=== PATIENT | female | born 2005 | race Two or more races ===

== ENCOUNTER 2025-08-16 09:13 | Emergency (ER) | payer MEDICAID, OTHER ==
[~2025-08-16] VITALS: Ht 154.9 cm; Wt 103.9 kg
[2025-08-16] MEDS ORDERED: PSEUDOEPHEDRINE HCL 30 MG TAB PO ONE (09:45)
[2025-08-16] MEDS: ACETAMINOPHEN 325 MG TAB PO ONE (10:03)
[2025-08-16] MEDS: IBUPROFEN 400 MG TAB PO ONE (10:06)
--- NOTE | 2025-08-16 10:06 | ED.PDOC ---
GI ASSESSMENT HPI Comments Dana Delacruz is a 20-year-old female with no relevant past medical history. The patient came to the ED with a chief complaint of 4 flu-like symptoms; fever, chills, runny nose, wet cough. 2 days ago she stat experiencing odynophagia and aphonia. The patient took Tylenol and Benadryl with partial relief. The patient reported she is about 20 weeks , patient does not recall exact last menstrual period. The patient has not established pre-guillermo care. The patient denies shortness of breath, nausea, vomit, sick contact, vaginal bleeding, vaginal discharge, recent travels or other symptoms. Chief Complaint: Flu like Time Seen by MD: 09:18 Reviewed Notes: Nurses Notes, Medications, Allergies Allergies: Coded Allergies: NO KNOWN ALLERGIES (Unverified , 08/16/25) Information Source: Patient Mode of Arrival: Ambulatory Timing: Days Duration: Since onset Past Medical History PAST MEDICAL HISTORY: Denies Surgical History (Other): Right ovary cyst removal in 2022 COMBO WELDER History: Denies all COMBO WELDER Hx Family History Family History: Reviewed,noncontributory to illness Social History Smoker: Non-Smoker Alcohol: Denies ETOH Use Drugs: Denies Drug Use Lives In: Home Constitutional: reports: chills, fever, malaise, others (Myalgias ) EENTM: reports: nose congestion, throat pain, throat swelling, voice changes (Aphonia) Respiratory: reports: cough (Wet cough with yellowish phlegm); denies: hemoptysis, orthopnea, SOB at rest, shortness of breath, SOB with excertion, stridor, wheezing, others Cardiovascular: denies: chest pain, dizzy spells, diaphoresis, Dyspnea on exertion, edema, irregular heart beat, left arm pain, lightheadedness, palpitations, PND, syncope, others Gastrointestinal: denies: abdomen distended, abdominal pain, blood streaked bowels, constipated, diarrhea, dysphagia, difficulty swallowing, hematemesis, melena, nausea, poor appetite, poor fluid intake, rectal bleeding, rectal pain, vomiting, others Genitourinary: denies: abnormal vagina bleeding, burning, dyspareunia, dysuria, flank pain, frequency, hematuria, incontinence, pain, , vagina discharge, urgency, others Neurological: denies: dizziness, fainting, headache, left sided numbness, left sided weakness, numbness, paresthesia, pre-existing deficit, right sided num bness, right sided weakness, seizure, speech problems, tingling, tremors, weakness, others Musculoskeletal: denies: back pain, gout, joint pain, joint swelling, muscle pain, muscle stiffness, neck pain, others Integumetry: denies: bruises, change in color, change in hair/nails, dryness, laceration, lesions, lumps, rash, wounds, others Hematologic/Lymphatic: denies: anemia, blood clots, easy bleeding, easy bruising, swollen glands, others Endocrine: denies: excessive hunger, excessive sweating, excessive thirst, excessive urination, flushing, intolerance to cold, intolerance to heat, unexplained weight gain, unexplained weight loss, others Psychiatric: denies: anxiety, bipolar disorder, depression, hopeless, panic disorder, schizophrenia, sleepless, suicidal, others Physical Exam Exam Comments Centor criteria is 1 General Appearance: No Apparent Distress HEENT: Pharyngeal Erythema Neck: Full Range of Motion, Non-Tender, Normal, Normal Inspection Respiratory: Chest Non-Tender, Lungs Clear, No Accessory Muscle Use, No Respiratory Distress, Normal Breath Sounds Cardiovascular: No Edema, No JVD, No Murmur, No Gallop, Normal Peripheral Pulses, Regular Rate/Rhythm Breast Exam: Deferred Gastrointestinal: No Organomegaly, Non Tender, No Pulsatile Mass, Normal Bowel Sounds, Soft Genitalia: Deferred Pelvic: Deferred Rectal: Deferred Extremities: No calf tenderness, Normal capillary refill, Normal inspection, Normal range of motion, Non-tender, No pedal edema Neurologic: Alert, renewable 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 Was a procedure done?: No GI differential Dx Differential Diagnosis: Other Other Differential Diagnosis #Common cold #Faringytis X-Ray, Labs, Meds, VS Vital Signs Date Time Temp Pulse Resp B/P (MAP) Pulse Ox O2 Delivery O2 Flow Rate FiO2 08/16/25 11:44 99.8 87 18 114/78 (90) 98 99.8 08/16/25 11:44 87 18 98 Room Air 08/16/25 10:06 98.3 08/16/25 10:03 98.3 08/16/25 09:16 99.3 92 18 134/83 98 99.3 Current Medications Medications (Trade) Dose Ordered Sig/Ej Route Start Time Stop Time Status Last Admin Acetaminophen (Tylenol Tablet) 650 mg ONCE ONCE PO 08/16/25 09:45 08/16/25 09:46 DC 08/16/25 10:03 Ibuprofen (Motrin Tablet) 400 mg ONCE ONCE PO 08/16/25 09:45 08/16/25 09:46 DC 08/16/25 10:06 X-Ray, Labs, Meds, VS Comment The patient was started on pseudoephedrine,ibuprofen and acetaminophen. On re- evaluation the patient report improvement. Time of 1ST Reevaluation: 10:30 Reevaluation 1ST: Improved Patient Education/Counseling: Diagnosis, Treatment, Prognosis, Need For Follow Up Family Education/Counseling: Diagnosis, Treatment, Prognosis, Need For Follow Up SEPSIS Sepsis Screen Date sepsis recognized/suspect: Aug 16, 2025 Time Sepsis recognized/suspect: 913 Recent Procedure: No On Antibiotic Therapy: No Respiratory Rate >20: No Heart Rate >90: Yes Temp<36 C (96.8 F) or >38.3 C: No SBP <90 or MAP <65 mmHG: No New Acute Mental Status Change: No Is the patient on CPAP, BIPAP,: No Vital Signs Date Time Temp Pulse Resp B/P (MAP) Pulse Ox O2 Delivery O2 Flow Rate FiO2 08/16/25 11:44 99.8 87 18 114/78 (90) 98 99.8 08/16/25 11:44 87 18 98 Room Air 08/16/25 10:06 98.3 08/16/25 10:03 98.3 08/16/25 09:16 99.3 92 18 134/83 98 99.3 Medications Medications Dose Ordered Sig/Ej Route Start Time Stop Time Status Last Admin Dose Admin Acetaminophen 650 mg ONCE ONCE PO 08/16/25 09:45 08/16/25 09:46 DC 08/16/25 10:03 Ibuprofen 400 mg ONCE ONCE PO 08/16/25 09:45 08/16/25 09:46 DC 08/16/25 10:06 Departure 1 Departure Time of Disposition: 10:56 Impression: Primary Impression: Common cold Disposition: 01 HOME / SELF CARE / HOMELESS Condition: Good Referrals Dr. Vaughn (TELEVISION WRITER) Additional Instructions: Continue Tylenol 500mg po prn Continue benadryl 25 g po Q8H prn for flu symptoms. F/u with Dr. Vaughn (TELEVISION WRITER) to establish pre- care. Patient was counseling about warning signs and when to return to the nearest ED. Discharged With: Self, Spouse (Partner) Comments Goals of care discussed with the patient > 35 min. Discussed plan of care with Dr. Acevedo Code status: Full code PCP: Not established yet, f/u in discharge clinic for PCP and Dr. Vaughn for TELEVISION WRITER Plan discussed with: Patient, the patient agrees with the plan. Critical Care Note Critical Care Time?: No Stability Stability form required: No Heart Score Heart Score: Heart Score Response (Comments) Value History N/A 0 EKG N/A 0 Age N/A 0 Risk Factors N/A 0 Troponin N/A 0 Total 0 DEION FUCHS RESIDENT Aug 16, 2025 10:06
[2025-08-16 11:44] VITALS: BP 114/78; PULSE 87; RESP 18; TEMP 99.8; O2SAT 98
== END 2025-08-16 12:10 | disposition home or self-care (01) ==
LOC: ER 09:13
DX: O99.512 Diseases of the respiratory system complicating pregnancy, second trimester (principal); J00 Acute nasopharyngitis [common cold]; Z3A.20 20 weeks gestation of pregnancy